=== PATIENT | male | born 1980 | race Caucasian/White ===

== ENCOUNTER 2018-11-08 14:11 | Emergency (ER) | payer OTHER, MEDICAID, SELFPAY ==
[2018-11-08 14:16] VITALS: BP 143/75; PULSE 100; RESP 18; TEMP 36.9; O2SAT 99; BMI 26.5
--- NOTE | 2018-11-08 14:17 | DI.RAD.S_ITS ---
PROCEDURE: XR FEMUR LT MIN 2V INDICATIONS: fall out of tree femur pain TECHNIQUE: 2 views of the femur were acquired. COMPARISON: None. FINDINGS: Bones: No fractures or dislocations. No suspicious bony lesions. Soft tissues: No suspicious soft tissue calcifications or masses. IMPRESSION: No fracture. No osseous lesion. If there are persistent symptoms or clinical suspicion for pathology, then repeat radiographs or advanced imaging (CT, MRI or bone scan) should be considered for further evaluation. Dictated by: Pippa Kam MD, PhD on 11/08/2018 at 14:45 Approved by: Pippa Kam MD, PhD on 11/08/2018 at 14:46
--- NOTE | 2018-11-08 14:17 | DI.RAD.S_ITS ---
PROCEDURE: XR KNEE LT 3V INDICATIONS: fall out of tree femur pain TECHNIQUE: 3 views of the knee were acquired. COMPARISON: None. FINDINGS: Bones: No fractures or dislocations. No suspicious bony lesions. Soft tissues: No joint effusion. No suspicious soft tissue calcifications. IMPRESSION: No fracture. No osseous lesion. If there are persistent symptoms or clinical suspicion for pathology, then repeat radiographs or advanced imaging (CT, MRI or bone scan) should be considered for further evaluation. Dictated by: Pippa Kam MD, PhD on 11/08/2018 at 14:46 Approved by: Pippa Kam MD, PhD on 11/08/2018 at 14:46
--- NOTE | 2018-11-08 14:17 | DI.RAD.S_ITS ---
PROCEDURE: XR PELVIS 1-2V INDICATIONS: left pain fall 6ft out of tree TECHNIQUE: 1 view(s) of the pelvis acquired. COMPARISON: None. FINDINGS: Bones: No fractures or dislocations. No suspicious bony lesions. Soft tissues: Visualized bowel gas pattern is normal. No suspicious soft tissue calcifications. IMPRESSION: No fracture. No osseous lesion. If there are persistent symptoms or clinical suspicion for pathology, then repeat radiographs or advanced imaging (CT, MRI or bone scan) should be considered for further evaluation. Dictated by: Pippa Kam MD, PhD on 11/08/2018 at 14:46 Approved by: Pippa Kam MD, PhD on 11/08/2018 at 14:47
--- NOTE | 2018-11-08 14:20 | ED.LOWEXIN ---
HPI - Extremity Injury (Lower) General Chief Complaint: Extremity Injury, Lower Stated Complaint: Fell/left leg pain Time Seen by Provider: 11/08/18 14:17 Source: EMS Mode of arrival: EMS Limitations: no limitations History of Present Illness HPI Narrative: Patient is a 37-year-old male who presents with left femur pain and leg pain. He was in a tree playing with children when he fell out landing only on his left leg. No head injury he denies back pain he has some mild hip pain is mostly posterior superior knee. No numbness or tingling no ankle pain. He admits to having some vodka today but no other injury. Fiancee at bedside he states he fell directly onto his bottom and left hip. No loss of consciousness. He states that he heard a pop or a snap in his leg. MD complaint: knee injury and leg injury Onset (ago): minute(s) Related Data Previous Rx's Medication Instructions Recorded hydrocodone-acetaminophen [[place]] 1 tab PO Q6H PRN #14 tab NS 11/08/18 Allergies Allergy/AdvReac Type Severity Reaction Status Date / Time latex Allergy Verified 11/08/18 14:16 Penicillins Allergy Verified 11/08/18 14:16 Review of Systems Review of Systems ROS Unobtainable: All systems reviewed & are unremarkable except as noted in HPI and below Constitutional Denies chills, Denies fever(s), Denies lethargy and Denies weakness ENT Ears, Nose, Mouth, and Throat: Denies neck pain Cardiovascular Denies chest pain, Denies irregular heart rhythm, Denies lightheadedness, Denies palpitations and Denies orthopnea Gastrointestinal Gastrointestinal: Denies abdominal pain, Denies change in bowel habits, Denies diarrhea, Denies nausea and Denies vomiting Musculoskeletal Reports as per HPI, Denies back pain, Denies deformity, Reports limited range of motion, Reports muscle cramps, Denies neck pain and Denies numbness Neurologic Denies numbness and Denies weakness Endocrine Denies palpitations [facility] Social History Smoking Status: Current every day smoker Exam Initial Vital Signs Initial Vital Signs: Vital Signs Temperature 98.4 F 11/08/18 14:16 Pulse Rate 100 H 11/08/18 14:16 Respiratory Rate 18 11/08/18 14:16 Blood Pressure 143/75 H 11/08/18 14:16 Pulse Oximetry 99 11/08/18 14:16 Const General: cooperative, healthy appearing and acute distress (In pain) [facility] Head: normal to inspection, normocephalic and atraumatic Ears: hearing grossly normal bilaterally Nose: external nose normal Face and sinus: normal facial exam Mouth: oral mucosae normal Eyes General: appearance normal, both eyes and all related structures EOM: EOM intact bilaterally Neck Neck: normal visual inspection, supple and No tender Chest Chest: normal inspection of the chest and normal palpation of entire chest wall Resp Effort & Inspection: normal respiratory effort Auscultation: clear to auscultation bilaterally, no rales, no rhonchi and no wheezes Cardio Rate: regular rate Rhythm: regular rhythm Heart Sounds: S1 normal and S2 normal GI Palpation: soft, No firm and No guarding Back/Spine/Pelvis Back: normal to inspection and No back tenderness Cervical Spine: normal cervical lordosis, cervical ROM normal and No collar present Thoracic/Lumbar Spine: thoracic and lumbar spine normal to inspection Sacroiliac Joints: nontender Skin General: no rashes or lesions noted Lesions: no lesions Rashes: no rashes Course Orders Ordered: ED Orders 11/08/18 14:17 XR femur LT min 2V Stat XR knee LT 3V Stat XR pelvis 1-2V Stat 11/08/18 14:58 CT pelvis wo con Stat Discontinued Medications Hydromorphone HCl (Dilaudid) 0.5 mg IV NOW ONE Stop: 11/08/18 14:19 Last Admin: 11/08/18 14:22 Dose: 0.5 mg Ketorolac Tromethamine (Toradol) 30 mg IV NOW ONE Stop: 11/08/18 15:01 Last Admin: 11/08/18 15:08 Dose: 30 mg Lorazepam (Ativan) 0.5 mg IV NOW ONE Stop: 11/08/18 15:01 Last Admin: 11/08/18 15:08 Dose: 0.5 mg Vital Signs - 8 hr 11/08/18 14:16 11/08/18 15:28 11/08/18 15:55 Temperature 98.4 F Pulse Rate 100 H 17 L Pulse Rate [Left Dorsalis Pedis] 67 Respiratory Rate 18 16 Blood Pressure 143/75 H Blood Pressure [Left Arm] 143/80 H Pulse Oximetry 99 100 MDM - Extremity Injury (Lower) Imaging Data Pelvic x-ray: Radiologist's impression: PROCEDURE: XR PELVIS 1-2V INDICATIONS: left pain fall 6ft out of tree TECHNIQUE: 1 view(s) of the pelvis acquired. COMPARISON: None. FINDINGS: Bones: No fractures or dislocations. No suspicious bony lesions. Soft tissues: Visualized bowel gas pattern is normal. No suspicious soft tissue calcifications. IMPRESSION: No fracture. No osseous lesion. If there are persistent symptoms or clinical suspicion for pathology, then repeat radiographs or advanced imaging (CT, MRI or bone scan) should be considered for further evaluation. Dictated by: Pippa Kam MD, PhD on 11/08/2018 at 14:46 Left knee x-ray: Radiologist's impression: PROCEDURE: XR KNEE LT 3V INDICATIONS: fall out of tree femur pain TECHNIQUE: 3 views of the knee were acquired. COMPARISON: None. FINDINGS: Bones: No fractures or dislocations. No suspicious bony lesions. Soft tissues: No joint effusion. No suspicious soft tissue calcifications. IMPRESSION: No fracture. No osseous lesion. If there are persistent symptoms or clinical suspicion for pathology, then repeat radiographs or advanced imaging (CT, MRI or bone scan) should be considered for further evaluation. Dictated by: Pippa Kam MD, PhD on 11/08/2018 at 14:46 Left femur: Radiologist's impression: PROCEDURE: XR FEMUR LT MIN 2V INDICATIONS: fall out of tree femur pain TECHNIQUE: 2 views of the femur were acquired. COMPARISON: None. FINDINGS: Bones: No fractures or dislocations. No suspicious bony lesions. Soft tissues: No suspicious soft tissue calcifications or masses. IMPRESSION: No fracture. No osseous lesion. If there are persistent symptoms or clinical suspicion for pathology, then repeat radiographs or advanced imaging (CT, MRI or bone scan) should be considered for further evaluation. Dictated by: Pippa Kam MD, PhD on 11/08/2018 at 14:45 CT pelvis: Radiologist's impression: PROCEDURE: CT PEL WO CON INDICATIONS: Pain left hip fall from tree 6-7 ft TECHNIQUE: Noncontrast 3 mm axial sections acquired through the bony pelvis, with coronal and sagittal reformatting. COMPARISON: [facility], XR PELVIS 1-2V, 11/08/2018, 14:25. FINDINGS: Image quality: Excellent. Bones: No fracture or dislocation. No suspicious osseous lesions. Soft tissues: No soft tissue fluid/hematomas. No lymphadenopathy based on size criteria. Urinary bladder wall is normal. No free fluid or air identified within the isualized intraperitoneal cavity. The appendix is normal. Large and small bowel loops are normal where visualized. IMPRESSION: No fracture. Dictated by: Pippa Kam MD, PhD on 11/08/2018 at 15:22 MDM Narrative Medical decision making narrative: Patient has significant pain posterior femur is no actual knee pain or swelling. He is able to extend his knee some flexion but due to pain unable to flex completely. Neurovascularly intact. Significant pain on palpation of hip as well. Decision for CT. His CT is negative for fracture as well. He has no deformity minimal contusion. Knee immobilizer placed crutches given he is ambulatory and able to toe-touch. Follow-up outpatient may require MRI if still having pain. Discharge Plan Departure Patient Disposition: Home Clinical Impression: Sprain of left knee/leg, Sprain of thigh Discharge Date/Time: 11/08/18 16:18 Interventions: ED Discharge Assessment Last Done: 11/08/18 16:17 Instructions: Contusion, Knee Sprain Activity Restrictions/Additional Instructions: *You have been diagnosed with left leg pain, contusion *What to do: Wear a knee brace as needed, crutches, increase all weight-bearing as tolerated, may require outpatient MRI *Continue to take medications as directed Motrin 800 mg every 8 hr if needed for [id number] pain [place] 1-2 tablets every 6 hr if needed for severe pain *Follow up with your primary care provider in 2-3 days, call Orthopedics Saturday morning to schedule follow-up appointment *Return to ER if you should have [such as] [or] any new, worsening or concerning symptoms Prescriptions: New hydrocodone-acetaminophen [[place]] 5-325 mg tablet 1 tab PO Q6H PRN (Reason: pain) Qty: 14 RF: 0 Referrals: [facility] [Provider Group]
[2018-11-08] MEDS: HYDROMORPHONE 1 MG INJ 0.5 MG IV (14:22)
--- NOTE | 2018-11-08 14:27 | ED_ITS ---
HPI - Extremity Injury (Lower) General Chief Complaint: Extremity Injury, Lower Stated Complaint: Fell/left leg pain Time Seen by Provider: 11/08/18 14:17 Source: EMS Mode of arrival: EMS Limitations: no limitations History of Present Illness HPI Narrative: Patient is a 37-year-old male who presents with left femur pain and leg pain. He was in a tree playing with children when he fell out landing only on his left leg. No head injury he denies back pain he has some mild hip pain is mostly posterior superior knee. No numbness or tingling no ankle pain. He admits to having some vodka today but no other injury. Fiancee at bedside he states he fell directly onto his bottom and left hip. No loss of consciousness. He states that he heard a pop or a snap in his leg. MD complaint: knee injury and leg injury Onset (ago): minute(s) Related Data Previous Rx's Medication Instructions Recorded hydrocodone-acetaminophen [[place]] 1 tab PO Q6H PRN #14 tab NS 11/08/18 Allergies Allergy/AdvReac Type Severity Reaction Status Date / Time latex Allergy Verified 11/08/18 14:16 Penicillins Allergy Verified 11/08/18 14:16 Review of Systems Review of Systems ROS Unobtainable: All systems reviewed & are unremarkable except as noted in HPI and below Constitutional Denies chills, Denies fever(s), Denies lethargy and Denies weakness ENT Ears, Nose, Mouth, and Throat: Denies neck pain Cardiovascular Denies chest pain, Denies irregular heart rhythm, Denies lightheadedness, Denies palpitations and Denies orthopnea Gastrointestinal Gastrointestinal: Denies abdominal pain, Denies change in bowel habits, Denies diarrhea, Denies nausea and Denies vomiting Musculoskeletal Reports as per HPI, Denies back pain, Denies deformity, Reports limited range of motion, Reports muscle cramps, Denies neck pain and Denies numbness Neurologic Denies numbness and Denies weakness Endocrine Denies palpitations [facility] Social History Smoking Status: Current every day smoker Exam Initial Vital Signs Initial Vital Signs: Vital Signs Temperature 98.4 F 11/08/18 14:16 Pulse Rate 100 H 11/08/18 14:16 Respiratory Rate 18 11/08/18 14:16 Blood Pressure 143/75 H 11/08/18 14:16 Pulse Oximetry 99 11/08/18 14:16 Const General: cooperative, healthy appearing and acute distress (In pain) [facility] Head: normal to inspection, normocephalic and atraumatic Ears: hearing grossly normal bilaterally Nose: external nose normal Face and sinus: normal facial exam Mouth: oral mucosae normal Eyes General: appearance normal, both eyes and all related structures EOM: EOM intact bilaterally Neck Neck: normal visual inspection, supple and No tender Chest Chest: normal inspection of the chest and normal palpation of entire chest wall Resp Effort & Inspection: normal respiratory effort Auscultation: clear to auscultation bilaterally, no rales, no rhonchi and no wheezes Cardio Rate: regular rate Rhythm: regular rhythm Heart Sounds: S1 normal and S2 normal GI Palpation: soft, No firm and No guarding Back/Spine/Pelvis Back: normal to inspection and No back tenderness Cervical Spine: normal cervical lordosis, cervical ROM normal and No collar present Thoracic/Lumbar Spine: thoracic and lumbar spine normal to inspection Sacroiliac Joints: nontender Skin General: no rashes or lesions noted Lesions: no lesions Rashes: no rashes Course Orders Ordered: ED Orders 11/08/18 14:17 XR femur LT min 2V Stat XR knee LT 3V Stat XR pelvis 1-2V Stat 11/08/18 14:58 CT pelvis wo con Stat Discontinued Medications Hydromorphone HCl (Dilaudid) 0.5 mg IV NOW ONE Stop: 11/08/18 14:19 Last Admin: 11/08/18 14:22 Dose: 0.5 mg Ketorolac Tromethamine (Toradol) 30 mg IV NOW ONE Stop: 11/08/18 15:01 Last Admin: 11/08/18 15:08 Dose: 30 mg Lorazepam (Ativan) 0.5 mg IV NOW ONE Stop: 11/08/18 15:01 Last Admin: 11/08/18 15:08 Dose: 0.5 mg Vital Signs - 8 hr 11/08/18 14:16 11/08/18 15:28 11/08/18 15:55 Temperature 98.4 F Pulse Rate 100 H 17 L Pulse Rate [Left Dorsalis Pedis] 67 Respiratory Rate 18 16 Blood Pressure 143/75 H Blood Pressure [Left Arm] 143/80 H Pulse Oximetry 99 100 MDM - Extremity Injury (Lower) Imaging Data Pelvic x-ray: Radiologist's impression: PROCEDURE: XR PELVIS 1-2V INDICATIONS: left pain fall 6ft out of tree TECHNIQUE: 1 view(s) of the pelvis acquired. COMPARISON: None. FINDINGS: Bones: No fractures or dislocations. No suspicious bony lesions. Soft tissues: Visualized bowel gas pattern is normal. No suspicious soft tissue calcifications. IMPRESSION: No fracture. No osseous lesion. If there are persistent symptoms or clinical suspicion for pathology, then repeat radiographs or advanced imaging (CT, MRI or bone scan) should be considered for further evaluation. Dictated by: Pippa Kam MD, PhD on 11/08/2018 at 14:46 Left knee x-ray: Radiologist's impression: PROCEDURE: XR KNEE LT 3V INDICATIONS: fall out of tree femur pain TECHNIQUE: 3 views of the knee were acquired. COMPARISON: None. FINDINGS: Bones: No fractures or dislocations. No suspicious bony lesions. Soft tissues: No joint effusion. No suspicious soft tissue calcifications. IMPRESSION: No fracture. No osseous lesion. If there are persistent symptoms or clinical suspicion for pathology, then repeat radiographs or advanced imaging (CT, MRI or bone scan) should be considered for further evaluation. Dictated by: Pippa Kam MD, PhD on 11/08/2018 at 14:46 Left femur: Radiologist's impression: PROCEDURE: XR FEMUR LT MIN 2V INDICATIONS: fall out of tree femur pain TECHNIQUE: 2 views of the femur were acquired. COMPARISON: None. FINDINGS: Bones: No fractures or dislocations. No suspicious bony lesions. Soft tissues: No suspicious soft tissue calcifications or masses. IMPRESSION: No fracture. No osseous lesion. If there are persistent symptoms or clinical suspicion for pathology, then repeat radiographs or advanced imaging (CT, MRI or bone scan) should be considered for further evaluation. Dictated by: Pippa Kam MD, PhD on 11/08/2018 at 14:45 CT pelvis: Radiologist's impression: PROCEDURE: CT PEL WO CON INDICATIONS: Pain left hip fall from tree 6-7 ft TECHNIQUE: Noncontrast 3 mm axial sections acquired through the bony pelvis, with coronal and sagittal reformatting. COMPARISON: [facility], XR PELVIS 1-2V, 11/08/2018, 14:25. FINDINGS: Image quality: Excellent. Bones: No fracture or dislocation. No suspicious osseous lesions. Soft tissues: No soft tissue fluid/hematomas. No lymphadenopathy based on size criteria. Urinary bladder wall is normal. No free fluid or air identified within the isualized intraperitoneal cavity. The appendix is normal. Large and small bowel loops are normal where visualized. IMPRESSION: No fracture. Dictated by: Pippa Kam MD, PhD on 11/08/2018 at 15:22 MDM Narrative Medical decision making narrative: Patient has significant pain posterior femur is no actual knee pain or swelling. He is able to extend his knee some flexion but due to pain unable to flex completely. Neurovascularly intact. Significant pain on palpation of hip as well. Decision for CT. His CT is negative for fracture as well. He has no deformity minimal contusion. Knee immobilizer placed crutches given he is ambulatory and able to toe-touch. Follow-up outpatient may require MRI if still having pain. Discharge Plan Departure Patient Disposition: Home Clinical Impression: Sprain of left knee/leg, Sprain of thigh Discharge Date/Time: 11/08/18 16:18 Interventions: ED Discharge Assessment Last Done: 11/08/18 16:17 Instructions: Contusion, Knee Sprain Activity Restrictions/Additional Instructions: *You have been diagnosed with left leg pain, contusion *What to do: Wear a knee brace as needed, crutches, increase all weight- bearing as tolerated, may require outpatient MRI *Continue to take medications as directed Motrin 800 mg every 8 hr if needed for [id number] pain [place] 1-2 tablets every 6 hr if needed for severe pain *Follow up with your primary care provider in 2-3 days, call Orthopedics Saturday morning to schedule follow-up appointment *Return to ER if you should have [such as] [or] any new, worsening or concerning symptoms Prescriptions: New hydrocodone-acetaminophen [[place]] 5-325 mg tablet 1 tab PO Q6H PRN (Reason: pain) Qty: 14 RF: 0 Referrals: [facility] [Provider Group]
--- NOTE | 2018-11-08 14:58 | DI.CT.S_ITS ---
PROCEDURE: CT PEL WO CON INDICATIONS: Pain left hip fall from tree 6-7 ft TECHNIQUE: Noncontrast 3 mm axial sections acquired through the bony pelvis, with coronal and sagittal reformatting. COMPARISON: [facility], CR, XR PELVIS 1-2V, 11/08/2018, 14:25. FINDINGS: Image quality: Excellent. Bones: No fracture or dislocation. No suspicious osseous lesions. Soft tissues: No soft tissue fluid/hematomas. No lymphadenopathy based on size criteria. Urinary bladder wall is normal. No free fluid or air identified within the isualized intraperitoneal cavity. The appendix is normal. Large and small bowel loops are normal where visualized. IMPRESSION: No fracture. Dictated by: Pippa Kam MD, PhD on 11/08/2018 at 15:22 Approved by: Pippa Kam MD, PhD on 11/08/2018 at 15:25
[2018-11-08] MEDS: LORazepam 2 MG/ML SYRINGE 0.5 MG IV (15:08)
[2018-11-08] MEDS: KETOROLAC 60 MG/2 ML VIAL 30 MG IV (15:08)
[2018-11-08 15:28] VITALS: PULSE 67
[2018-11-08 15:55] VITALS: BP 143/80; PULSE 17; RESP 16; O2SAT 100
== END 2018-11-08 16:18 | disposition home or self-care (01) ==
PROVIDERS: Emergency Provider Emergency Medicine
DX: S83.92XA Sprain of unspecified site of left knee, initial encounter (principal); S76.012A Strain of muscle, fascia and tendon of left hip, initial encounter; W14.XXXA Fall from tree, initial encounter
CPT/HCPCS: 72170; 72192; 73552; 73562; 99283; 99284; J1170; J1885; J2060